=== PATIENT | male | born 1960 | race Caucasian/White ===

== ENCOUNTER → 2023-01-07 | Outpatient (CLI) | payer BC ==
[2023-01-07 16:12] LABS: Blood Urea Nitrogen 17.1 mg/dL (9.0-27.0); Carbon Dioxide 28.2 mmol/L (21.6-31.8); Chloride 102 mmol/L (96-109); Potassium 5.2 mmol/L (3.5-5.5); Sodium 141 mmol/L (135-145)
== END | disposition home or self-care (01) ==
LOC: LABPAT 08:53
PROVIDERS: ATTEND Internal Medicine Interventional Cardiology
DX: Z01.812 Encounter for preprocedural laboratory examination (principal)
CPT/HCPCS: 36415; 80051; 82565; 84520; 85027

== ENCOUNTER 2023-01-13 05:43 | Day surgery (SDC) | payer BC ==
[2023-01-13] MEDS ORDERED: NITROGLYCERIN SL TABS 0.4 MG TAB SUBLINGUAL PRN (05:56)
[2023-01-13] MEDS ORDERED: HEPARIN SODIUM,PORCINE 10,000 UNIT in SODIUM CHLORIDE 0.9% 1,000 ML IRRIGATION PRN (05:56)
[2023-01-13] MEDS ORDERED: ALPRAZolam 0.5 MG TAB PO PRN (05:56)
[2023-01-13] MEDS ORDERED: ATORVASTATIN 80 MG TAB PO STA (05:56)
[2023-01-13] MEDS ORDERED: ASPIRIN 325 MG TAB PO STA (05:56)
[2023-01-13] MEDS ORDERED: SODIUM CHLORIDE 0.9% 1,000 ML in EMPTY BAG 1 BAG IV SCH (05:56)
[2023-01-13] MEDS ORDERED: HEPARIN SODIUM,PORCINE 2,500 UNIT in SODIUM CHLORIDE 0.9% 250 ML IRRIGATION PRN (05:56)
[2023-01-13] MEDS ORDERED: ALPRAZolam 0.25 MG TAB PO PRN (05:56)
[2023-01-13 06:22] VITALS: RESP 18; TEMP 97.8
[2023-01-13 06:34] LABS: Basophils # (A) 0.1 k/uL (0-0.2); Basophils % (A) 1 %; Eosinophils # (A) 0.2 k/uL (0-0.7); Eosinophils % (A) 3 %; HCT 45.8 % (39.0-53.0); HGB 14.7 gm/dL (13.0-17.5); Lymphocytes # (A) 1.9 k/uL (1.0-4.8); Lymphocytes % (A) 23 %; MCH 27.6 pg (25.0-35.0); MCV 86.3 fL (80.0-100.0); Mean Platelet Volume 7.9; Monocytes # (A) 0.5 k/uL (0-1.0); Monocytes % (A) 7 %; Neutrophils # (A) 5.4 k/uL (1.3-7.7); Neutrophils % (A) 66 %; Platelet Count 272 k/uL (150-450); RDW 13.2 % (11.5-15.5); WBC 8.2 k/uL (3.8-10.6)
[2023-01-13] MEDS ORDERED: fentaNYL (PF) 50 MCG/ML 2 ML AMP ONE (07:13)
[2023-01-13] MEDS ORDERED: VERAPAMIL 2.5 MG/ML 2 ML AMP ONE (07:13)
[2023-01-13] MEDS ORDERED: HEPARIN SODIUM 1,000 UN/ML (10ML VL) ONE (07:13)
[2023-01-13] MEDS ORDERED: MIDAZOLAM 2 MG/2 ML VIAL IVP ONE (07:45)
[2023-01-13] MEDS ORDERED: LIDOCAINE 1% INJ 10MG/ML (5 ML VIAL-PF) SQ ONE (07:45)
[2023-01-13] MEDS ORDERED: VERAPAMIL SYRINGE (5 MG/10 ML) INTRAARTER ONE ×2 (07:46→07:53)
[2023-01-13] MEDS ORDERED: HEPARIN SODIUM 1,000 UN/ML (10ML VL) IVP ONE (07:48)
[2023-01-13] MEDS ORDERED: IOPAMIDOL-370 100ML BTL INJ ONE (07:53)
[2023-01-13] MEDS ORDERED: RX INFO: IV CONTRAST WAS GIVEN 1 EACH MISC MISCELLANE PRN (07:56)
[2023-01-13] MEDS ORDERED: SODIUM CHLORIDE 0.9% 1,000 ML IV SCH (08:00)
--- NOTE | 2023-01-13 08:00 | P.PCN ---
Date of Procedure: 01/13/23 Operative Findings: CARDIAC CATHETERIZATION PERFORMING PHYSICIAN: Cj Gonsalez MD, RPVI PROCEDURE PERFORMED: 1. Selective right and left coronary angiogram 2. Left heart catheterization INDICATION: Chest discomfort concerning for unstable angina COMPLICATION: None APPROACH: Right radial artery LEVEL OF SEDATION: Moderate with a sedation length of 10 minutes PROCEDURE DESCRIPTION: After obtaining an informed consent, the patient was brought to cardiac labelling machine operator. Local anesthesia was performed using lidocaine subcutaneously. The right radial artery was cannulated using Seldinger technique, the guidewire passed easily, following that we advanced a 5-Hungarian sheath dilator assembly, the wire and dilator were removed and sheath was flushed. Following that, 2 mg of verapamil along with 5000 unit heparin were given. Selective right and left coronary angiogram using a 6-Hungarian JR4 and JL 3.5 catheters. Following that we did left heart catheterization using 6-Hungarian JR4 which cross the aortic valve. The procedure was completed there was no complication. SELECTIVE CORONARY ANGIOGRAM: The right coronary artery: Large caliber vessel and a dominant vessel. Its angiographically normal. Distally bifurcates into PDA and PLV branches and both appeared to be angiographically normal Left main: Is angiographically normal. Bifurcates into an LCx and LAD The left circumflex: Large caliber vessel nondominant vessel. The LCx is angiographically normal. Gives rises into an OM1 and OM 2 and both appeared to be angiographically normal. The left anterior descending artery: Large caliber vessel. Its angiographically normal as well. Gives rises into a diagonal branch in the midportion which appears to be normal. HEMODYNAMICS: The LVEDP was 18-20 mmHg was no significant gradient across aortic valve CONCLUSION: 1. Normal coronary angiogram 2. Elevated left-sided filling pressure POSTPROCEDURE MANAGEMENT: Medical treatment and follow-up with the patient
[2023-01-13 11:31] VITALS: BP 144/71; PULSE 59
== END 2023-01-13 11:55 | disposition home or self-care (01) ==
LOC: CATHCVL 05:43
PROVIDERS: ATTEND Internal Medicine Interventional Cardiology
DX: I25.10 Atherosclerotic heart disease of native coronary artery without angina pectoris (principal); I10 Essential (primary) hypertension; Z82.49 Family history of ischemic heart disease and other diseases of the circulatory system; Z79.82 Long term (current) use of aspirin; Z79.899 Other long term (current) drug therapy
CPT/HCPCS: 93458; 85025; C1769; C1894; J2250; J2001; J1644; Q9967

== ENCOUNTER → 2024-05-27 | Outpatient (CLI) | payer BC ==
[2024-05-27 15:19] LABS: ALT 17 U/L (10-49); AST 16 U/L (14-35); Chol/HDL Ratio 3.81 Ratio; LDL Cholesterol,Calculated 109.6 mg/dL (0.0-131.0); VLDL Calculation 12.06 mg/dL (5.00-40.00)
== END | disposition home or self-care (01) ==
LOC: LABWHC1 09:17
PROVIDERS: ATTEND Internal Medicine Interventional Cardiology
DX: E78.2 Mixed hyperlipidemia (principal)
CPT/HCPCS: 36415; 80061; 84450; 84460